=== PATIENT | male | born 1970 | race Asian ===

== ENCOUNTER 2020-03-26 05:35 | Emergency (ER) | payer BC ==
--- NOTE | 2020-03-26 05:48 | ED Physician Documentation ---
PD HPI ABD PAIN - Stated complaint Stated Complaint: ADB PX - Chief complaint Chief Complaint: Abd Pain - History obtained from History obtained from: Patient - History of Present Illness Timing - onset: How many hours ago (3) Timing - duration: Hours Timing - details: Abrupt onset, Still present Quality: Cramping, Aching, Pain Location: RLQ (3) Radiation: Right flank Improved by: No: Eating, Position Worsened by: No: Eating, Moving, Breathing, Palpation Associated symptoms: Nausea, Loss of appetite. No: Fever, Vomiting, Diarrhea, Dysuria, Near syncope / syncope Similar symptoms before: Has not had sx before Recently seen: Not recently seen Review of Systems Constitutional: denies: Fever, Chills Nose: denies: Rhinorrhea / runny nose, Congestion Throat: denies: Sore throat Cardiac: denies: Chest pain / pressure, Palpitations Respiratory: denies: Cough : denies: Dysuria Skin: denies: Rash, Lesions Musculoskeletal: denies: Neck pain, Back pain PD PAST MEDICAL HISTORY - Past Medical History Cardiovascular: None Respiratory: None Neuro: None Endocrine/Autoimmune: None GI: None : None - Present Medications Home Medications: Ambulatory Orders Medication Instructions Recorded Confirmed Ibuprofen [Motrin] 600 mg PO TID PRN #25 tab 03/26/20 Ondansetron Odt [Zofran] 4 mg TL Q6H PRN #10 tablet 03/26/20 Oxycodone HCl/Acetaminophen 1 each PO Q6H PRN #15 tablet 03/26/20 [Percocet 5-325 mg Tablet] - Allergies Allergies/Adverse Reactions: Allergies Allergy/AdvReac Type Severity Reaction Status Date / Time No Known Drug Allergies Allergy Verified 03/26/20 05:42 PD ED PE NORMAL - Vitals Vital signs reviewed: Yes - General General: Alert and oriented X 3, Well developed/nourished, Other (appears in pain and is writhing side to side. Restless.) - Cardiac Cardiac: RRR, No murmur - Respiratory Respiratory: Clear bilaterally - Abdomen Abdomen: Normal bowel sounds, Soft, Non distended, No organomegaly, Other (tender right lower to suprapubic area, without percussion nor rebound tenderness. RIght CVA area with some tenderness. NO skin sensitivity. ) Results - Vitals Vitals: Vital Signs - 24 hr 03/26/20 03/26/20 03/26/20 05:39 06:19 08:46 Temperature 36.1 C L 37.1 C Heart Rate 66 65 68 Respiratory 20 20 17 Rate Blood Pressure 178/115 H 159/105 H 136/71 H O2 Saturation 99 97 99 Oxygen O2 Source Room air - Labs Labs: Laboratory Tests 03/26/20 03/26/20 05:58 05:58 WBC 7.0 RBC 5.09 Hgb 14.7 Hct 42.7 MCV 83.9 MCH 28.9 MCHC 34.4 RDW 12.2 Plt Count 358 MPV 8.9 Neut # (Auto) 4.9 Lymph # (Auto) 1.4 L [place] # (Auto) 0.5 Eos # (Auto) 0.1 Baso # (Auto) 0.1 Absolute Nucleated RBC 0.00 Nucleated RBC % 0.0 Sodium 137 Potassium 3.5 Chloride 103 Carbon Dioxide 23 Anion Gap 11.0 BUN 23 H Creatinine 1.2 Estimated GFR (MDRD) 65 L Glucose 140 H Calcium 9.1 Total Bilirubin 0.7 AST 20 ALT 22 Alkaline Phosphatase 55 Total Protein 7.6 Albumin 4.1 Globulin 3.5 Albumin/Globulin Ratio 1.2 Lipase 37 - Rads (name of study) abd/pelvic CT Radiology: Prelim report reviewed (2 mm stone at right distal ureter, almost to the bladder. ), See rad report PD MEDICAL DECISION MAKING - ED course Complexity details: reviewed results (small kidney stone almost to UVJ.), re- evaluated patient (patient is much more comfortable after IV medications), considered differential (consider kidney stone, SBO, less likely GB given the lower area of pain.), d/w patient Departure - Departure Disposition: 01 Home, Self Care Clinical Impression: Right sided abdominal pain, Ureterolithiasis Condition: Stable Record reviewed to determine appropriate education?: Yes Instructions: ED Stone Renal W Colic Follow-Up: [facility] [place] [Provider Group] [facility] [Provider Group] Prescriptions: Ibuprofen [Motrin] 600 mg PO TID PRN #25 tab PRN Reason: Pain Oxycodone HCl/Acetaminophen [Percocet 5-325 mg Tablet] 1 each PO Q6H PRN #15 tablet PRN Reason: pain Ondansetron Odt [Zofran] 4 mg TL Q6H PRN #10 tablet PRN Reason: Nausea / Vomiting Comments: Stay adequately hydrated. Use ibuprofen anti-inflammatories 3 times daily for the next several days to a week. Add ondansetron if needed for nausea. To this add Tylenol every 4-6 hours or oxycodone if needed for worse pain. You have a 2 to 3 mm stone at the end of the ureter almost into the bladder. An ticipation would be that this passes within the next couple of days. Follow-up with local provider if not fully improved over the next few days. Return if significantly worse. Forms: Activity restrictions Discharge Date/Time: 03/26/20 08:47
[2020-03-26] MEDS ORDERED: KETOROLAC 15 MG/ML VIAL IVP STA (05:55)
[2020-03-26] MEDS ORDERED: SODIUM CHLORIDE 0.9% 1,000 ML IV STA (05:55)
[2020-03-26] MEDS ORDERED: ONDANSETRON 4 MG/2 ML VIAL IVP STA (05:55)
[2020-03-26] MEDS ORDERED: HYDROmorphone 1 MG/ML CARPUJECT IVP STA ×2 (05:55→07:26)
[2020-03-26 06:09] LABS: BASOPHILS # (AUTO) 0.1 10^3/uL (0.0-0.1); BASOPHILS % (AUTO) 1.1 %; EOSINOPHILS # (AUTO) 0.1 10^3/uL (0.0-0.7); EOSINOPHILS % (AUTO) 1.3 %; HGB - HEMOGLOBIN 14.7 g/dL (14.0-18.0); LYMPHOCYTES # (AUTO) 1.4 10^3/uL (1.5-3.5); LYMPHOCYTES % (AUTO) 20.2 %; MEAN CORPUSCULAR HEMOGLOBIN 28.9 pg (27.0-31.0); MEAN CORPUSCULAR HGB CONC 34.4 g/dL (32.0-36.0); MEAN CORPUSCULAR VOLUME 83.9 fL (80.0-94.0); MEAN PLATELET VOLUME 8.9 fL (7.4-11.4); MONOCYTES # (AUTO) 0.5 10^3/uL (0.0-1.0); MONOCYTES % (AUTO) 6.6 %; NEUTROPHILS # (AUTO) 4.9 10^3/uL (1.5-6.6); NEUTROPHILS % (AUTO) 70.4 %; PLT - PLATELET COUNT 358 10^3/uL (130-450); RED BLOOD COUNT 5.09 10^6/uL (4.70-6.10); RED CELL DISTRIBUTION WIDTH 12.2 % (12.0-15.0)
[2020-03-26 06:17] LABS: ALBUMIN 4.1 g/dL (3.2-5.5); ALBUMIN/GLOBULIN RATIO 1.2 (1.0-2.2); BILIRUBIN,TOTAL 0.7 mg/dL (0.2-1.0); CALCIUM 9.1 mg/dL (8.5-10.3); CREATININE 1.2 mg/dL (0.6-1.2); TOTAL PROTEIN 7.6 g/dL (6.7-8.2)
[2020-03-26] MEDS ORDERED: DEXAMETHASONE 10 MG/ML VIAL IVP STA (07:26)
--- NOTE | 2020-03-26 08:36 | CT Report ---
PROCEDURE: Abdomen/Pelvis WO INDICATIONS: right side abd pain abrupt overnight TECHNIQUE: Noncontrast 5 mm thick sections acquired from the diaphragms to the symphysis. 5 mm coronal and sagi ttal reformats were then performed. For radiation dose reduction, the following was used: automated exposure control, adjustment of mA and/or kV according to patient size. COMPARISON: None. FINDINGS: Image quality: Excellent. ABDOMEN: Lung bases: Possible 5 mm right lung base nodule seen on image 1, series 4. This is only partially im aged. Heart size is normal. Mild bibasilar atelectasis. Small hiatal hernia. Solid organs: Liver and spleen are normal in size. Gallbladder is unremarkable. Pancreas is normal in contours. No adrenal nodules. There is a 2 mm obstructing distal right ureteral stone identified at the level of the right ureterovesicular junction. There is mild right-sided hydroureteronephrosis with minimal periureteral and perinephric stranding. Left kidney is normal in size without hydroneph rosis or nephrolithiasis. Peritoneum and bowel: Unenhanced bowel loops demonstrate normal wall thickness and caliber. No free fluid or air. A few scattered colonic diverticula without acute inflammation. Nodes and vessels: No retroperitoneal or mesenteric adenopathy by size criteria. Aorta and inferior vena cava are normal in caliber. Miscellaneous: No ventral hernias. PELVIS: Genitourinary: Bladder wall thickness is normal. Miscellaneous: No inguinal hernias or adenopathy. Bones: No suspicious bony lesions. No vertebral body compression fractures. IMPRESSION: 1. A 2 mm obstructing distal right ureteral stone at the level of the right ureterovesicular junction with associated mild hydroureteronephrosis and periureteral/perinephric stranding. Recommend correla ting for possible concurrent infectious uropathy symptoms. 2. Incompletely imaged 5 mm right lung base nodule. Recommend follow-up CT in 12 months to document s tability. 3. Small hiatal hernia. 4. Colonic diverticulosis without acute diverticulitis. No significant discrepancy with initial interpretation by overnight radiologist. Reviewed by: Felice Han MD on 03/26/2020 8:35 AM PST Approved by: Felice Han MD on 03/26/2020 8:35 AM PST Station ID: [id number]
[2020-03-26 08:47] VITALS: BP 136/71
== END 2020-03-26 08:47 | disposition home or self-care (01) ==
LOC: ED 05:35
DX: N20.1 Calculus of ureter (principal)
CPT/HCPCS: 36415; 74176; 80053; 83690; 85025; 96374; 96375; 99283; 99284; J1170